=== PATIENT | male | born 1985 | race Caucasian/White ===

== ENCOUNTER 2016-07-03 15:03 | Emergency (ER) | payer MEDICAID ==
[~2016-07-03] VITALS: Ht 170.2 cm; Wt 88.6 kg
[2016-07-03] MEDS ORDERED: DiphenhydrAMINE HCL 50 MG/ML VIAL IVP ONE (18:00)
[2016-07-03] MEDS ORDERED: PROCHLORPERAZINE EDISYLATE 5 MG/ML 2 ML VIAL IVP ONE (18:00)
[2016-07-03] MEDS ORDERED: SODIUM CHLORIDE 0.9% 1,000 ML IV ONE (18:00)
[2016-07-03 19:07] VITALS: BP 139/88
== END 2016-07-03 19:44 | disposition home or self-care (01) ==
LOC: EMS 15:11
DX: R51 Headache (principal); R05 Cough
CPT/HCPCS: 96361; 96374; 96375; 99284; J0780; J1200; J7030